=== PATIENT | male | born 1965 | race Caucasian/White ===

== ENCOUNTER 2019-04-01 17:02 | Inpatient (IN) | payer OTHER ==
[~2019-04-01] VITALS: Ht 182.9 cm; Wt 74.4 kg
--- NOTE | ~2019-04-01 | EKG ---
[place], [place] ELECTROCARDIOGRAM REPORT NAME: DEAN SEGOVIA UNIT #: [id number] ROOM: 422 DOCTOR: GUERLINE DRAFT REPORT BIRTHDATE: [birth year] [facility] Test Date: 2019-04-01 Test Time: 20:08:00 Pat Name: DEAN SEGOVIA Department: Room: 422 1 Gender: M First Mate: : 1965 Requested By: PRINCE DIETZ Order Number: [id number] Reading MD: Tara Hull Measurements Intervals [place] Rate: 58 P: 68 MT: 139 QRS: 69 QRSD: 90 T: 53 QT: 417 QTc: 410 Interpretive Statements Sinus rhythm Baseline wander in lead(s) V3 Electronically Signed On 04-02-2019 12:31:31 PDT by Tara Hull CM:[id number]:ELECTROCARDIOGRAM REPORT 07 1231 PRINCE J LUIS CUNHA DRAFT REPORT PRINCE DIETZ
[2019-04-01 17:10] VITALS: BP 146/84
--- NOTE | 2019-04-01 17:20 | NUR ---
PT WAANTED SOMETHING TO EAT DR WILLIAM WAS OK WITH IT DIET ORDER PUT IN TRAY ORDERED
[2019-04-01 17:25] LABS: BASO % 0.5 % (0.0-1.0); EOS # 0.1 10*3/uL (0.0-0.4); EOS % 3.2 % (1.0-4.0); HEMOGLOBIN 13.9 g/dl (14.0-18.0); LYMPH # 1.2 10*3/uL (1.3-4.4); LYMPH % 27.7 % (27.0-41.0); MEAN CELL VOLUME 97.1 fl (80.0-94.0); MEAN CORPUSCULAR HGB 30.7 pg (27.0-31.0); MEAN CORPUSCULAR HGB CONC 31.6 g/dl (33.0-37.0); MEAN PLATELET VOLUME 9.4 fl (9.6-12.3); MONO # 0.4 10*3/uL (0.1-1.0); MONO % 9.7 % (3.0-9.0); NEUT # 2.6 10*3/uL (2.3-7.9); NEUT % 58.7 % (47.0-73.0); PLATELET COUNT AUTOMATED 243 10*3/uL (130-400); RED BLOOD COUNT 4.53 10*6/uL (4.50-5.90); RED CELL DISTRI WIDTH 13.5 % (0-14.5); WHITE BLOOD COUNT 4.4 10*3/uL (4.8-10.8)
[2019-04-01 17:36] LABS: ETHYL ALCOHOL < 3.0 mg/dl (<3)
[2019-04-01 17:39] LABS: BILIRUBIN NEGATIVE (NEGATIVE); BLOOD NEGATIVE (NEGATIVE); CLARITY SL CLOUDY (CLEAR); COLOR YELLOW (YELLOW); GLUCOSE NEGATIVE (NEGATIVE); KETONE TRACE (NEGATIVE); LEUKO ESTERASE NEGATIVE (NEGATIVE); NITRITE NEGATIVE (NEGATIVE); SPECIFIC GRAVITY 1.025 (1.005-1.030)
[2019-04-01 17:40] LABS: ACT PARTIAL THROMBO TIME 25.8 SECONDS (20.0-32.1); INTERNATIONAL NORM RATIO 0.9 (2.0-3.5)
[2019-04-01 17:45] LABS: BACTERIA TRACE; WBC 0-2 wbc/hpf (0-5)
[2019-04-01 17:50] LABS: URINE AMPHETAMINES < 1000 (1000ng/ml); URINE BARBITURATES < 200 (200ng/ml); URINE BENZODIAZEPINES > 200 (200ng/ml); URINE CANNABINOIDS (THC) < 50 (50ng/ml); URINE COCAINE > 300 (300ng/ml); URINE METHADONE < 300 (300ng/ml); URINE OPIATES < 300 (300ng/ml)
[2019-04-01 17:51] LABS: URINE PHENCYCLIDINE < 25 (25ng/ml)
--- NOTE | 2019-04-01 17:54 | NUR ---
DINNER TRAY HERE PT IN ROOM EATING NO DISTRESS NOTED
--- NOTE | 2019-04-01 18:15 | NUR ---
53 year old MALE admitted to room # 422 for stabilization. 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 Compliant with admission procedure. Patient denies any anxiety, but is unable to sit still, taps toes to floor continuously, looks about room, unable to focus eyes on nurse during interview. See assessment forms for additional information about patient status.
[2019-04-01] MEDS ORDERED: XANAX1 MG PO (18:20)
[2019-04-01] MEDS ORDERED: FLUOXETINE HCL40 MG PO (18:21)
[2019-04-01 18:41] VITALS: BP 142/87
[2019-04-01 19:52] LABS: ALBUMIN 3.3 gm/dl (3.1-4.5); ALKALINE PHOSPHATASE 78 U/L (45-117); BUN 14 mg/dl (7-24); CHLORIDE 107 mmol/L (98-107); CREATININE 0.96 mg/dL (0.70-1.30); POTASSIUM 4.1 mmol/L (3.5-5.1); SGOT/AST 11 IU/L (3-35); SGPT/ALT 19 U/L (12-78); SODIUM 142 mmol/L (136-145); TOTAL PROTEIN 6.1 gm/dL (6.4-8.2)
[2019-04-02] VITALS: BP 111/69
[2019-04-02 08:00] VITALS: BP 126/66
--- NOTE | 2019-04-02 11:00 | NUR ---
PT RESTING IN BED WITH EYES CLOSED
--- NOTE | 2019-04-02 14:00 | NUR ---
PT RESTING IN BED WITH EYES CLOSED
[2019-04-02 16:00] VITALS: BP 121/59
--- NOTE | 2019-04-02 16:00 | NUR ---
PT RESTING IN BED WITH EYES CLOSED
[2019-04-02 20:00] VITALS: BP 115/58
[2019-04-03] VITALS: BP 117/66
--- NOTE | 2019-04-03 02:05 | NUR ---
24 HR chart check completed.
[2019-04-03 08:00] VITALS: BP 130/74
[2019-04-03 12:00] VITALS: BP 115/62
[2019-04-03 16:00] VITALS: BP 117/55
[2019-04-03 20:00] VITALS: BP 115/55
--- NOTE | 2019-04-03 21:25 | NUR ---
PATIENT REQUESTING INCREASE IN MOTRIN FROM 600MG Q8 TO 800 MG Q8, STATES THAT IS WHAT HE TAKES AT HOME. DR PERERA CALLED- OK TO INCREASE DOSE AND PLACE NEW ORDER IN.
--- NOTE | 2019-04-03 21:36 | NUR ---
PATIENT REQUESTING MOTRIN FOR C/O ARTHRITIS PAIN AND SLEEP MEDICATION. MOTRIN AND TRAZADONE ADMINISTERED ADMINISTERED PRESCRIBED. WILL MONITOR FOR EFFECTIVENESS.
--- NOTE | 2019-04-03 22:36 | NUR ---
PATIENT RESTING WITH EYES CLOSED AT THIS TIME. RESPIRATIONS EASY AND UNLABORED ON ROOM AIR. BED LOCKED IN LOWEST POSITION AND CALL LIGHT WITHIN REACH. WILL MONITOR.
[2019-04-04] VITALS: BP 123/81
--- NOTE | 2019-04-04 00:48 | NUR ---
24 HR chart check completed.
--- NOTE | 2019-04-04 00:48 | NUR ---
PATIENT RESTING IN BED WITH EYES CLOSED. RESPIRATIONS EASY AND UNLABORED ON ROOM AIR. BED LOCKED IN LOWEST POSITION AND CALL LIGHT WITHIN REACH. WILL MONITOR.
--- NOTE | 2019-04-04 05:42 | NUR ---
PT C/O UPSET STOMACH AND CRAMPING. MAALOX AND BENTLY ADMINISTERED PRESCRIBED. WILL MONITOR FOR EFFECTIVENESS.
[2019-04-04 06:36] LABS: BASO % 0.7 % (0.0-1.0); EOS # 0.2 10*3/uL (0.0-0.4); EOS % 5.2 % (1.0-4.0); HEMATOCRIT 43.5 % (42.0-52.0); HEMOGLOBIN 13.7 g/dl (14.0-18.0); LYMPH # 1.5 10*3/uL (1.3-4.4); MEAN CELL VOLUME 97.1 fl (80.0-94.0); MEAN CORPUSCULAR HGB 30.6 pg (27.0-31.0); MEAN CORPUSCULAR HGB CONC 31.5 g/dl (33.0-37.0); MEAN PLATELET VOLUME 9.9 fl (9.6-12.3); MONO # 0.3 10*3/uL (0.1-1.0); MONO % 7.9 % (3.0-9.0); NEUT # 2.1 10*3/uL (2.3-7.9); PLATELET COUNT AUTOMATED 206 10*3/uL (130-400); RED BLOOD COUNT 4.48 10*6/uL (4.50-5.90); WHITE BLOOD COUNT 4.2 10*3/uL (4.8-10.8)
[2019-04-04 06:57] LABS: CREATININE 0.86 mg/dL (0.70-1.30)
[2019-04-04 08:00] VITALS: BP 114/51; BP 128/78
[2019-04-04] MEDS ORDERED: ZOFRAN4 MG PO (09:28)
[2019-04-04] MEDS ORDERED: XANAX1 MG PO (09:28)
--- NOTE | 2019-04-04 09:37 | NUR ---
PATIENT MEETS [facility]. PATIENT IS GOING TO [facility] FOR RESIDENTIAL TREATMENT FOR HIS AFTERCARE PLAN. [facility] IS BEING TRANSPORTED BY [place]. PATIENT AGREES AND UNDERSTANDS HIS AFTERCARE PLAN. KARIN GARCIA B.A. RN RECRUITMENT
--- NOTE | 2019-04-04 10:30 | NUR ---
PT DISCHARGED TO [facility]. REPRESENATIVE HERE FROM THERE TO TRANSPORT. DISCHARGE PAPERWORK PROVIDED IN PACKET TO [employer] S[employer]IOR. PT TRANSPORTED OFF FLOOR VIA WHEELCHAIR.
== END 2019-04-04 10:30 | disposition home or self-care (01) | DRG 897 ==
LOC: ED 17:02 → 4E 17:16 → EDHOLD 17:16 → 4E 17:27
PROVIDERS: Emergency Medicine; Internal Medicine; ADMIT Internal Medicine
DX: F14.29 Cocaine dependence with unspecified cocaine-induced disorder (principal); E44.1 Mild protein-calorie malnutrition; F13.230 Sedative, hypnotic or anxiolytic dependence with withdrawal, uncomplicated; D64.9 Anemia, unspecified; F41.9 Anxiety disorder, unspecified; R00.1 Bradycardia, unspecified; E83.41 Hypermagnesemia; D72.819 Decreased white blood cell count, unspecified; Z72.0 Tobacco use; Z80.8 Family history of malignant neoplasm of other organs or systems; Z79.899 Other long term (current) drug therapy; Z68.22 Body mass index [BMI] 22.0-22.9, adult